=== PATIENT | female | born 2005 | race Caucasian/White ===

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

== ENCOUNTER → 2023-06-13 | Outpatient (CLI) | payer OTHER ==
[~2023-06-13] MED LIST changes: +DULOXETINE30 MG PO; +METRONIDAZOLE500 M1 PO
== END ==
LOC: LAB 15:46
DX: J02.9 Acute pharyngitis, unspecified (principal)

== ENCOUNTER 2023-11-17 19:38 | Emergency (ER) | payer BC ==
[~2023-11-17 19:38] MED LIST changes: +KLONOPIN 1MG1 MG
[2023-11-17] MEDS ORDERED: fentaNYL 100 MCG/2 ML VIAL IV ONE ×2 (20:15→21:15)
[2023-11-17 20:17] LABS: BASO # 0.03 K/mm3 (0.02-0.10); EOS # 0.09 K/mm3 (0.04-0.40); EOS % 0.7 % (0.1-4.0); HEMATOCRIT 46.1 % (35.0-45.0); HEMOGLOBIN 14.5 g/dL (12.0-15.0); LYMPH# 3.23 K/mm3 (1.20-3.40); MEAN CELL VOLUME 85 fl (78-95); MEAN CORPUSCULAR HEMOGLOBIN 27 pg (26-32); MEAN CORPUSCULAR HGB CONC 32 g/dL (33-37); MEAN PLATELET VOLUME 9.5 fl (7.4-10.4); MONO # 0.66 K/mm3 (0.10-0.60); NEU # 8.71 K/mm3 (1.40-6.50); PLATELET COUNT 440 K/mm3 (130-400); RED BLOOD COUNT 5.43 M/mm3 (4.10-5.30); RED CELL DISTRIBUTION WIDTH 12.8 % (11.5-14.5); WHITE BLOOD COUNT 12.8 K/mm3 (4.8-10.8)
[2023-11-17] MEDS ORDERED: Iohexol 300 - 100 ML VIAL IV ONE (20:17)
[2023-11-17 20:25] LABS: ALBUMIN 4.6 g/dL (3.5-5.0)
[2023-11-17 20:26] LABS: CALCIUM 10.5 mg/dL (8.3-10.5)
[2023-11-17 20:28] LABS: TOTAL PROTEIN 8.3 g/dL (6.4-8.3)
[2023-11-17 20:29] LABS: TOTAL BILIRUBIN 0.3 mg/dL (0.2-1.2)
[2023-11-17] MEDS ORDERED: LORazepam 2 MG/ML VIAL IV ONE (20:45)
[2023-11-17] MEDS ORDERED: NS 1,000 ML IV SCH (20:45)
[2023-11-17 21:53] LABS: D-DIMER 0.24 mg/L FEU (0.15-0.50)
[2023-11-17 22:25] VITALS: BP 161/99
== END 2023-11-17 22:25 | disposition home or self-care (01) ==
LOC: ED 19:38
PROVIDERS: Registered Nurse
DX: R68.84 Jaw pain (principal); K08.89 Other specified disorders of teeth and supporting structures; R79.82 Elevated C-reactive protein (CRP); R07.9 Chest pain, unspecified; R00.0 Tachycardia, unspecified
CPT/HCPCS: J2060; J3010; J7030; Q9967